=== PATIENT | male | born 1935 | race Caucasian/White ===

== ENCOUNTER 2017-05-09 14:05 | Observation (INO) | payer MEDICARE ==
[~2017-05-09] VITALS: Ht 182.9 cm; Wt 100.0 kg
[~2017-05-09 14:05] MED LIST: APIX5TAB PO; CYAN1TAB22 PO; FINA5TAB2 PO; FURO40TA PO; GABA100C4 PO; NORV2.5T PO; POTA20TA5 PO; PRAV10TA PO; TERA5CAP3 PO; VALS1TAB70 PO
[2017-05-09 14:07] VITALS: BP 163/88; PULSE 63; RESP 16; TEMP 97.8; O2SAT 98
--- NOTE | 2017-05-09 14:18 | PD ---
HPI Chief Complaint: Cardiac Complaint Time Seen by Provider: 14:18 Travel History International Travel<30 days: No Contact w/Intl Traveler<30days: No Traveled to known affect area: No History of Present Illness HPI 82-year-old male presents to the emergency Department with episodes of feeling lightheaded, and dizzy even at rest. Patient states he's had these episodes several times over the past several days. Denies specific complaints of shortness of breath, chest pain, or abdominal pain. He has no nausea or vomiting. 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 Patient has history of atrial fibrillation. Patient states these episodes last 5-10 minutes and then seemed to go away by themselves. He denies shortness of breath, cough, has had with exertion. He denies orthopnea. Patient is allergic to flu shots. PFSH Past Medical History Hx Anticoagulant Therapy: Yes Arthritis: Yes Atrial Fibrillation: Yes Blood Disorders: No Cancer: Yes (SKIN CANCER REMOVED) Cardiovascular Problems: Yes Chemotherapy: No Congestive Heart Failure: Yes Diminished Hearing: Yes Endocrine: No Gout: Yes Genitourinary: No Hypertension: Yes Immune Disorder: No Musculoskeletal: Yes Neurologic: No Psychiatric: No Reproductive: No Respiratory: No Radiation Therapy: No Past Surgical History Abdominal Surgery: Yes (APPENDECTOMY, LAP CHOLEY) AICD: No Appendectomy: Yes Arteriovenous Shunt: No Cholecystectomy: Yes Genitourinary Surgery: Yes (RUPTURED BLADDER REPAIR) Insulin Pump: No Joint Replacement: Yes (LEFT KNEE) Pacemaker: No Other Surgery: Yes Social History Alcohol Use: Yes (DAILY 2 DRINKS) Tobacco Use: No Substance Use: No Allergies-Medications (Allergen,Severity, Reaction): Uncoded Allergies: flu shot (Allergy, Intermediate, muscle weakness , 03/02/17) Reported Meds & Prescriptions Reported Meds & Active Scripts Active Reported Vitamin B-12 (Cyanocobalamin) 5,000 Mcg Tab 5,000 Mcg PO DAILY Valsartan 320 Mg Tab 320 Mg PO DAILY Terazosin (Terazosin HCl) 5 Mg Cap 5 Mg PO HS Pravastatin 10 Mg Tab 10 Mg PO DAILY Potassium Chloride Microencaps 20 Meq Tab 20 Meq PO DAILY Eliquis (Apixaban) 5 Mg Tab 5 Mg PO BID Gabapentin 100 Mg Cap 200 Mg PO TID Furosemide 40 Mg Tab 40 Mg PO BID Finasteride 5 Mg Tab 5 Mg PO DAILY Do not crush. Review of Systems Except as stated in HPI: all other systems reviewed are Neg General / Constitutional: No: Fever Eyes: No: Visual changes HENT: Positive: Lightheadedness, No: Headaches Cardiovascular: Positive: Irregular Rhythm, No: Chest Pain or Discomfort, Palpitations, Tachycardia, Diaphoresis, Syncope, Dyspnea on exertion, Varicosities, Edema, Cyanosis, Varicosities, Phlebitis Respiratory: No: Shortness of Breath Gastrointestinal: No: Abdominal Pain Genitourinary: No: Dysuria Musculoskeletal: No: Pain Skin: No Rash Neurologic: No: Weakness Psychiatric: No: Depression Endocrine: No: Polydipsia Hematologic/Lymphatic: No: Easy Bruising Physical Exam Narrative GENERAL: Patient appears in no acute distress. SKIN: Warm and dry. Normal color. Normal turgor. HEAD: Atraumatic. Normocephalic. EYES: Pupils equal and round. No scleral icterus. No injection or drainage. ENT: No nasal bleeding or discharge. Mucous membranes pink and moist. Pharynx is clear. Airway is patent. NECK: Trachea midline. No JVD. Supple nontender. CARDIOVASCULAR: Bradycardic rate and rhythm. No murmurs gallops or rubs. RESPIRATORY: No accessory muscle use. Clear to auscultation. Breath sounds equal bilaterally. GASTROINTESTINAL: Abdomen soft, non-tender, nondistended. Hepatic and splenic margins not palpable. MUSCULOSKELETAL: Extremities without clubbing, cyanosis, or edema. No obvious deformities. NEUROLOGICAL: Awake and alert. No obvious cranial nerve deficits. Motor grossly within normal limits. Five out of 5 muscle strength in the arms and legs. Normal speech. PSYCHIATRIC: Appropriate mood and affect; insight and judgment normal. Data Data Last Documented VS Vital Signs Date Time Temp Pulse Resp B/P (MAP) Pulse Ox O2 Delivery O2 Flow Rate FiO2 05/09/17 15:34 54 18 143/81 (101) 96 Room Air 05/09/17 14:07 97.8 Orders Orders Electrocardiogram (05/09/17 14:28) Complete Blood Count With Diff (05/09/17 14:28) Comprehensive Metabolic Panel (05/09/17 14:28) Magnesium (Mg) (05/09/17 14:28) B-Type Natriuretic Peptide (05/09/17 14:28) Ckmb (Isoenzyme) Profile (05/09/17 14:28) Troponin I (05/09/17 14:28) Act Partial Throm Time (Ptt) (05/09/17 14:28) Prothrombin Time / Inr (Pt) (05/09/17 14:28) Urinalysis - C+S If Indicated (05/09/17 14:28) Chest, Single Ap (05/09/17 14:28) Ecg Monitoring (05/09/17 14:28) Iv Access Insert/Monitor (05/09/17 14:28) Oximetry (05/09/17 14:28) Sodium Chloride 0.9% Flush (Ns Flush) (05/09/17 14:30) Orthostatic Vital Signs (05/09/17 14:28) Sodium Chlorid 0.9% 500 Ml Inj (Ns 500 M (05/09/17 14:30) Labs Laboratory Tests Test 05/09/17 14:42 05/09/17 15:00 White Blood Count 8.1 TH/MM3 Red Blood Count 4.29 MIL/MM3 Hemoglobin 13.4 GM/DL Hematocrit 38.3 % Mean Corpuscular Volume 89.2 FL Mean Corpuscular Hemoglobin 31.3 PG Mean Corpuscular Hemoglobin Concent 35.1 % Red Cell Distribution Width 14.4 % Platelet Count 217 TH/MM3 Mean Platelet Volume 8.9 FL Neutrophils (%) (Auto) 68.2 % Lymphocytes (%) (Auto) 21.9 % Monocytes (%) (Auto) 8.0 % Eosinophils (%) (Auto) 0.8 % Basophils (%) (Auto) 1.1 % Neutrophils # (Auto) 5.5 TH/MM3 Lymphocytes # (Auto) 1.8 TH/MM3 Monocytes # (Auto) 0.6 TH/MM3 Eosinophils # (Auto) 0.1 TH/MM3 Basophils # (Auto) 0.1 TH/MM3 CBC Comment DIFF FINAL Differential Comment Prothrombin Time 10.8 SEC Prothromb Time International Ratio 1.0 RATIO Activated Partial Thromboplast Time 30.3 SEC Blood Urea Nitrogen 10 MG/DL Creatinine 0.71 MG/DL Random Glucose 82 MG/DL Total Protein 7.0 GM/DL Albumin 3.2 GM/DL Calcium Level 8.4 MG/DL Magnesium Level 2.0 MG/DL Alkaline Phosphatase 80 U/L Aspartate Amino Transf (AST/SGOT) 20 U/L Alanine Aminotransferase (ALT/SGPT) 15 U/L Total Bilirubin 0.8 MG/DL Sodium Level 139 MEQ/L Potassium Level 3.7 MEQ/L Chloride Level 104 MEQ/L Carbon Dioxide Level 28.0 MEQ/L Anion Gap 7 MEQ/L Estimat Glomerular Filtration Rate 106 ML/MIN Total Creatine Kinase 66 U/L Troponin I LESS THAN 0.02 NG/ML B-Type Natriuretic Peptide 137 PG/ML Urine Color YELLOW Urine Turbidity HAZY Urine pH 6.5 Urine Specific [place] 1.019 Urine Protein NEG mg/dL Urine Glucose (UA) NEG mg/dL Urine Ketones NEG mg/dL Urine Occult Blood NEG Urine Nitrite NEG Urine Bilirubin NEG Urine Urobilinogen LESS THAN 2.0 MG/DL Urine Leukocyte Esterase NEG Urine RBC 1 /hpf Urine WBC 2 /hpf Urine Squamous Epithelial Cells <1 /hpf Urine Mucus FEW /lpf Microscopic Urinalysis Comment CULT NOT INDICATED MDM Medical Decision Making Medical Screen Exam Complete: Yes Emergency Medical Condition: Yes Medical Record Reviewed: Yes Differential Diagnosis Electrolyte imbalance. Bradycardia. Cardiac syndrome. CHF. Narrative Course Patient is medically stable at time of exam. EKG is performed showing atrial fibrillation with slow ventricular response with a rate of 59 beats per minute. This is reviewed with Dr. Dumont. Labs ordered including CBC, CMP, cardiac panel, proBNP, and urinalysis. Orthostatics are ordered. Patient is given 500 mg normal saline bolus. CBC is unremarkable. Coagulation studies show PT of 10.8, INR is 1.0, APTT is 30.3. Urinalysis is unremarkable. CMP shows no significant findings with a BNP of 137, first troponin is less than 0.02. Orthostatics were unremarkable. Patient discussed with Dr. Dumont. Diagnosis Primary Impression: Bradycardia Additional Impressions: Near syncope A-fib Qualified Codes: I48.2 - Chronic atrial fibrillation Admitting Information Admitting Physician Requests: Observation Condition: Stable Shaun Bond May 09, 2017 14:18
[2017-05-09] MEDS ORDERED: SODIUM CHLORID 0.9% 500 ML INJ 500 ML IV ONE (14:30)
[2017-05-09] MEDS ORDERED: SODIUM CHLORIDE 0.9% FLUSH 10 ML FLUSH IVF PRN (14:30)
[2017-05-09 15:05] VITALS: O2SAT 98
[2017-05-09 15:17] LABS: AUTOMATED NEUTROPHIL # 5.5 TH/MM3 (1.8-7.7); BASOPHIL # 0.1 TH/MM3 (0-0.2); BASOPHIL % 1.1 % (0.0-2.0); EOSINOPHIL # 0.1 TH/MM3 (0-0.4); EOSINOPHIL % 0.8 % (0.0-4.0); HEMATOCRIT 38.3 % (39.0-51.0); HEMO FLAGS DIFF FINAL; LYMPH % 21.9 % (9.0-44.0); LYMPHOCYTE # 1.8 TH/MM3 (1.0-4.8); MEAN CELL VOLUME 89.2 FL (80.0-100.0); MEAN CORPUSCULAR HEMOGLOBIN 31.3 PG (27.0-34.0); MEAN CORPUSCULAR HGB CONC 35.1 % (32.0-36.0); NEUT % 68.2 % (16.0-70.0); PLATELET COUNT 217 TH/MM3 (150-450); RED BLOOD COUNT 4.29 MIL/MM3 (4.50-5.90); RED CELL DISTRIBUTION WIDTH 14.4 % (11.6-17.2); WHITE BLOOD COUNT 8.1 TH/MM3 (4.0-11.0)
[2017-05-09 15:21] LABS: APTT (PATIENT) 30.3 SEC (24.3-30.1); PROTHROMBIN TIME - PATIENT 10.8 SEC (9.8-11.6)
[2017-05-09 15:25] LABS: BLOOD, URINE NEG (NEG); COMMENT (UR) CULT NOT INDICATED; CULTURE IF INDICATED CULT NOT INDICATED; GLUCOSE,URINE NEG (NEG); KETONE, URINE NEG (NEG); MUCUS URINE FEW /lpf (OCC); NITRITE,URINE NEG (NEG); PH, URINE 6.5 (5.0-8.5); SQUAMOUS EPITHELIAL CELL URINE <1 /hpf (0-5); URINE COLOR YELLOW (YELLW/STRAW)
[2017-05-09 15:30] LABS: AST (GOT) 20 U/L (15-37); BLOOD UREA NITROGEN 10 MG/DL (7-18); GLOMERULAR FILTRATION RATE 106 ML/MIN (>89)
[2017-05-09 15:32] LABS: ALT (GPT) 15 U/L (12-78)
[2017-05-09 15:34] VITALS: BP_SYST 143; BP_SYST 148; BP_DIAS 77; BP_DIAS 81; PULSE 54; RESP 18; O2SAT 96
--- NOTE | 2017-05-09 15:50 | RADRPT ---
EXAM DATE/TIME: 05/09/2017 15:23 [place] COMPARISON: No previous studies available for comparison. INDICATIONS : Palpitations. MEDICAL HISTORY : Congestive heart failure. A fib SURGICAL HISTORY : None. ENCOUNTER: Initial ACUITY: 1 day PAIN SCORE: 3/10 LOCATION: Bilateral chest FINDINGS: A single view of the chest demonstrates the lungs to be symmetrically aerated without evidence of mas s, infiltrate or effusion. The heart is upper limits normal for AP portable technique. Mild tortuos ity descending thoracic aorta.. Osseous structures are intact. CONCLUSION: The lungs are clear. Leon Bah MD on May 09, 2017 at 15:48 Board Certified Radiologist. This report was verified electronically.
[2017-05-09 15:59] LABS: ALKALINE PHOSPHATASE 80 U/L (45-117); TOTAL BILIRUBIN ADULT 0.8 MG/DL (0.2-1.0)
[2017-05-09 16:00] LABS: CREATINE KINASE 66 U/L (39-308)
[2017-05-09 16:05] LABS: ANION GAP 7 MEQ/L (5-15); CHLORIDE 104 MEQ/L (98-107); POTASSIUM 3.7 MEQ/L (3.5-5.1); SODIUM (NA) 139 MEQ/L (136-145)
[2017-05-09] MEDS ORDERED: LACTULOSE SYRUP 20 GM/30 ML CUP PO PRN (16:45)
[2017-05-09] MEDS ORDERED: SODIUM CHLORIDE 0.9% FLUSH 10 ML FLUSH IV FLUSH PRN (16:45)
[2017-05-09] MEDS ORDERED: ACETAMINOPHEN 325 MG TAB PO PRN (16:45)
[2017-05-09] MEDS ORDERED: NALOXONE HCL 0.4 MG/ML AMP IV PUSH PRN (16:45)
[2017-05-09] MEDS ORDERED: MAGNESIUM HYDROXIDE SUSP 30 ML CUP PO PRN (16:45)
[2017-05-09] MEDS ORDERED: BISACODYL 10 MG SUPP RECTAL PRN (16:45)
[2017-05-09] MEDS ORDERED: SENNOSIDES 8.6 MG TAB PO PRN (16:45)
[2017-05-09] MEDS ORDERED: ONDANSETRON HCL 4 MG/2 ML VIAL IVP PRN (16:45)
--- NOTE | 2017-05-09 17:24 | HHI.HP ---
[facility] Service [facility] Service Primary Care Physician Timothy South MD Admission Diagnosis Nearsyncope/Bradycardia/Labile Hypertension Diagnoses: International Travel<30 Days: No Contact w/Intl Traveler<30days: No History of Present Illness Patient is an 82 year old male with history significant for atrial fibrillation , CHF, and HTN who presents with lightheadedness and labile blood pressures. The symptoms are intermittent and have been occurring for at least two days and "maybe longer." They last at max 20 minutes and self-resolve. No obvious triggers. His BPs have been running 100s/50s to 180s/90s at home over the last week on and off amlodipine. 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 Ortega) stopped amlodipine 2.5mg on 05/06/2017 due to complaints of labile BPs and that patient has been taking Lasix 40mg tablets once daily rather than twice daily as prescribed. Echo last completed a couple of months ago per patient, and "everything was fine." Yesterday he had episode of "sweats" while sitting in a chair which went away after [address] Timothy South in the [facility]. He denies a risk of dehydration and has no recent illnesses or travel. Drinks lots of water during the daytime at baseline. Denies fevers, chills, dysuria, frequency, diarrhea, nausea, vomiting. No chest pain or shortness or breath. No increased LE edema from his baseline. No bleeding episodes or falls. Uses a cane for ambulation. (Gina Mahmood MD R2) Review of Systems Constitutional: DENIES: Fever, Chills, Change in appetite Eyes: DENIES: Blurred vision, Diplopia Ears, nose, mouth, throat: DENIES: Hearing loss, Vertigo, Ear Pain Respiratory: DENIES: Cough, Wheezing, Shortness of breath Cardiovascular: COMPLAINS OF: Lower Extremity Edema, DENIES: Chest pain, Palpitations, Syncope, Orthopnea, Claudication Gastrointestinal: DENIES: Abdominal pain, Black stools, Bloody stools, Constipation, Diarrhea, Nausea, Vomiting, Difficulty Swallowing Genitourinary: DENIES: Urinary frequency, Urinary incontinence, Dysuria Musculoskeletal: COMPLAINS OF: Joint pain (osteoarthritis), DENIES: Joint Swelling, Back pain, Neck pain Integumentary: DENIES: Pruritus, Rash Hematologic/lymphatic: DENIES: Bruising, Lymphadenopathy Neurologic: COMPLAINS OF: Poor Balance (uses cane), DENIES: Abnormal gait, Headache, Localized weakness, Seizures Psychiatric: DENIES: Anxiety, Confusion (Gina Mahmood MD R2) Past Family Social History Past Medical History PMH: Atrial fibrillation: Eliquis, Valsartan, Norvasc. CHF: valsartan, norvasc, Lasix. Last ECHO done January 2017, will try to obtain records. Hypercholesterolemia: on statin, low dose Neuropathy: gabapentin in feet Hypertension: norvasc, valsartan. Checks blood pressures at home. Uses cane to walk Osteoarthritis Other physicians: Dr. Ortega: cardiology Dr. Armendariz: [place] primary care Dr. Mg: neurologist for neuropathy Dr. 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 Family History: Mother: , heart problems, hypertension Father: from bone cancer Brother: hypertension, PTSD Sister age 3 with heart defect Healthcare maintenance: BP: 150/80 in clinic, checks at home, averages 130's/80's Smoking: in the past, quit 1984 Depression screening: no Fall prevention: no history of falls, uses cane to walk, has neuropathy Exercise: none Colonoscopy: last was 2005, had small polyps, no colon cancer in the family Past Surgical History above Reported Medications Reported Meds & Active Scripts Active Reported Vitamin B-12 (Cyanocobalamin) 5,000 Mcg Tab 5,000 Mcg PO DAILY Valsartan 320 Mg Tab 320 Mg PO DAILY Terazosin (Terazosin HCl) 5 Mg Cap 5 Mg PO HS Pravastatin 10 Mg Tab 10 Mg PO DAILY Potassium Chloride Microencaps 20 Meq Tab 20 Meq PO DAILY Eliquis (Apixaban) 5 Mg Tab 5 Mg PO BID Gabapentin 100 Mg Cap 200 Mg PO TID Furosemide 40 Mg Tab 40 Mg PO BID Finasteride 5 Mg Tab 5 Mg PO DAILY Do not crush. (Gina Mahmood MD R2) Allergies: Uncoded Allergies: flu shot (Allergy, Intermediate, muscle weakness , 03/02/17) Active Ordered Medications Inpatient Medications Acetaminophen (Tylenol) 650 mg Q4H PRN PO TEMP > 100.4; Start 05/09/17 at 16: 45 Bisacodyl (Dulcolax Supp) 10 mg DAILY PRN RECTAL SEVERE CONSITIPATION; Start 05/09/17 at 16:45 Lactulose (Lactulose Liq) 30 ml DAILY PRN PO SEVERE CONSITIPATION; Start 05/09 at 16:45 Magnesium Hydroxide (Milk Of Magnesia Liq) 30 ml Q12H PRN PO Mild constipation ; Start 05/09/17 at 16:45 Naloxone HCl (Narcan Inj) 0.4 mg UNSCH PRN IV PUSH SEE LABEL COMMENTS; Start 05/09/17 at 16:45 Ondansetron HCl (Zofran Inj) 4 mg Q6H PRN IVP NAUSEA OR VOMITING; Start at 16:45 Senna/Docusate Sodium (Alyssa-Colace) 1 tab BID PO ; Start 05/09/17 at 21:00 Sennosides (Senokot) 17.2 mg Q12H PRN PO Moderate constipation; Start at 16:45 Sodium Chloride (NS Flush) 2 ml BID IV FLUSH ; Start 05/09/17 at 21:00 Family History above Social History above Today reports: Nonsmoker (remote hx) Drinks wine one glass daily (Gina Mahmood MD R2) Physical Exam Vital Signs Vital Signs Date Time Temp Pulse Resp B/P (MAP) Pulse Ox O2 Delivery O2 Flow Rate FiO2 05/09/17 15:34 54 18 143/81 (101) 96 Room Air 05/09/17 15:34 58 18 143/81 (101) 54 18 148/77 (100) 05/09/17 15:05 98 Room Air 05/09/17 14:07 97.8 63 16 163/88 (113) 98 Physical Exam GENERAL: well appearing elderly white male accompanied by . In no apparent distress sitting up in bed. SKIN: Warm and dry. Venous stasis skin changes noted on bilateral LEs. Left knee with surgical scar. Abdomen with surgical scar at midline. HEAD: Atraumatic. Normocephalic. EYES: PERRLA, EOMI. No conjunctival injection. No scleral icterus. ENT: No nasal bleeding or discharge. Mucous membranes pink and moist. NECK: Trachea midline. No JVD noted. CARDIOVASCULAR: Irregular rate, no murmurs. Pulses 1+ in UEs, difficult to palpate in LEs due to edema (3+ to knees bilaterally). RESPIRATORY: No accessory muscle use. Clear to auscultation without wheezes or rhonchi. Breath sounds equal bilaterally. GASTROINTESTINAL: Abdomen soft, non-tender, obese. Bowel sounds normal. Hepatic and splenic margins not palpable. MUSCULOSKELETAL: Extremities without clubbing, cyanosis, or edema. No obvious deformities. NEUROLOGICAL: Awake and alert. radial drill operator for plastic II-XII intact. Motor grossly within normal limits. Five out of 5 muscle strength in the arms and legs. Normal speech. No issues with short ambulation. PSYCHIATRIC: Appropriate mood and affect; insight and judgment normal. Laboratory Laboratory Tests Test 05/09/17 14:42 05/09/17 15:00 White Blood Count 8.1 Red Blood Count 4.29 Hemoglobin 13.4 Hematocrit 38.3 Mean Corpuscular Volume 89.2 Mean Corpuscular Hemoglobin 31.3 Mean Corpuscular Hemoglobin Concent 35.1 Red Cell Distribution Width 14.4 Platelet Count 217 Mean Platelet Volume 8.9 Neutrophils (%) (Auto) 68.2 Lymphocytes (%) (Auto) 21.9 Monocytes (%) (Auto) 8.0 Eosinophils (%) (Auto) 0.8 Basophils (%) (Auto) 1.1 Neutrophils # (Auto) 5.5 Lymphocytes # (Auto) 1.8 Monocytes # (Auto) 0.6 Eosinophils # (Auto) 0.1 Basophils # (Auto) 0.1 CBC Comment DIFF FINAL Differential Comment Prothrombin Time 10.8 Prothromb Time International Ratio 1.0 Activated Partial Thromboplast Time 30.3 Blood Urea Nitrogen 10 Creatinine 0.71 Random Glucose 82 Total Protein 7.0 Albumin 3.2 Calcium Level 8.4 Magnesium Level 2.0 Alkaline Phosphatase 80 Aspartate Amino Transf (AST/SGOT) 20 Alanine Aminotransferase (ALT/SGPT) 15 Total Bilirubin 0.8 Sodium Level 139 Potassium Level 3.7 Chloride Level 104 Carbon Dioxide Level 28.0 Anion Gap 7 Estimat Glomerular Filtration Rate 106 Total Creatine Kinase 66 Troponin I LESS THAN 0.02 B-Type Natriuretic Peptide 137 Urine Color YELLOW Urine Turbidity HAZY Urine pH 6.5 Urine Specific [place] 1.019 Urine Protein NEG Urine Glucose (UA) NEG Urine Ketones NEG Urine Occult Blood NEG Urine Nitrite NEG Urine Bilirubin NEG Urine Urobilinogen LESS THAN 2.0 Urine Leukocyte Esterase NEG Urine RBC 1 Urine WBC 2 Urine Squamous Epithelial Cells <1 Urine Mucus FEW Microscopic Urinalysis Comment CULT NOT INDICATED (Gina Mahmood MD R2) Result Diagram: 05/09/17 1442 05/09/17 1442 Imaging Last Impressions Chest X-Ray 05/09/17 1428 Signed Impressions: Service Date/Time: Tuesday, May 09, 2017 15:23 - CONCLUSION: The lungs are clear. Leon Bah MD (Gina Mahmood MD R2) Caprini VTE Risk Assessment Caprini VTE Risk Assessment: Mod/High Risk (score >= 2) Caprini Risk Assessment Model Point Value = 1 Point Value = 2 Point Value = 3 Point Value = 5 Age 41-60 Minor surgery BMI > 25 kg/m2 Swollen legs Varicose veins or History of unexplained or recurrent spontaneous Oral contraceptives or hormone replacement Sepsis (< 1 month) Serious lung disease, including pneumonia (< 1 month) Abnormal pulmonary function Acute myocardial infarction Congestive heart failure (< 1 month) History of inflammatory bowel disease Medical patient at bed rest Age 61-74 Arthroscopic surgery Major open surgery (> 45 min) Laparoscopic surgery (> 45 min) Malignancy Confined to bed (> 72 hours) Immobilizing plaster cast Central venous access Age >= 75 History of VTE Family history of VTE Factor V Leiden Prothrombin [id number] Lupus anticoagulant Anticardiolipin antibodies Elevated serum homocysteine Heparin-induced thrombocytopenia Other congenital or acquired thrombophilia Stroke (< 1 month) Elective arthroplasty Hip, pelvis, or leg fracture Acute spinal cord injury (< 1 month) Prophylaxis Regimen Total Risk Factor Score Risk Level Prophylaxis Regimen 0-1 Low Early ambulation 2 Moderate Order ONE of the following: *Sequential Compression Device (SCD) *Heparin 5000 units SQ BID 3-4 Higher Order ONE of the following medications: *Heparin 5000 units SQ TID *Enoxaparin/Lovenox 40 mg SQ daily (WT < 150 kg, CrCl > 30 mL/min) *Enoxaparin/Lovenox 30 mg SQ daily (WT < 150 kg, CrCl > 10-29 mL/min) *Enoxaparin/Lovenox 30 mg SQ BID (WT < 150 kg, CrCl > 30 mL/min) AND/OR *Sequential Compression Device (SCD) 5 or more Highest Order ONE of the following medications: *Heparin 5000 units SQ TID (Preferred with Epidurals) *Enoxaparin/Lovenox 40 mg SQ daily (WT < 150 kg, CrCl > 30 mL/min) *Enoxaparin/Lovenox 30 mg SQ daily (WT < 150 kg, CrCl > 10-29 mL/min) *Enoxaparin/Lovenox 30 mg SQ BID (WT < 150 kg, CrCl > 30 mL/min) AND *Sequential Compression Device (SCD) (Gina Mahmood MD R2) Assessment and Plan Assessment and Plan 82 year old male with atrial fibrillation, CHF, HL, and OA who presents with nonspecific symptoms including intermittent lightheadness and labile blood pressures. He'll be admitted for observation for further workup. Code Status Full Code Discussed Condition With Dr. Dumont (Gina Mahmood MD R2) Attending Attestation Attending: Dr. Vianney Prado --> Dr. Robin (on 05/10/2017) (Gina Mahmood MD R2) I was available for questions re: this pt, but did not interview or examine. Pt to be assessed, including review of this H&P, by Dr Robin who assumed FPTS- resident service 05-10-17 (Vianney Prado MD) Problem List: (1) Near syncope ICD Codes: R55 - Syncope and collapse Status: Acute Plan: Patient presents with reports of dizziness and apparent near syncope. He has not had any syncopal episodes. Differential includes ACS, orthostatic hypotension, PE, dehydration, infection, dysrhythmia, vertigo, medications, psychogenic sources. Given he is also noted to have labile heart rate ranging from the 50s to 90s on telemetry in the ED, suspect this is the source of his symptoms. ED workup included orthostatic vital signs which were normal. Initial lab work and UA were unremarkable aside from mildly elevated BNP. BSG was 82 but patient states he has not eaten since yesterday. CXR unremarkable. Initial EKG showing atrial fibrillation, but notable for heart rate of 59. Wells score is 0. * Admit to observation with telemetry and close vital sign monitoring * Consult cardiology for evaluation - if significant bradycardia persists, patient may be a candidate for pacemaker in the short or long-term * 2-D echo ordered * Continue to trend cardiac enzymes as ACS may present atypically in this age group. Initial EKG and enzymes not diagnostic. * Activity out of bed with assistance only, fall precautions * Physical therapy to evaluate * Bedside glucose checks if patient becomes symptomatic during evaluation, patient does not prefer this at this time (2) A-fib ICD Codes: I48.91 - Unspecified atrial fibrillation Status: Acute Plan: Continue home dose Eliquis 5 mg twice a day Monitor on telemetry (3) Bradycardia ICD Codes: R00.1 - Bradycardia, unspecified Status: Acute Plan: As above. Patient was counseled that if he is now having symptomatic bradycardia that he may need a pacemaker. (4) CHF (congestive heart failure) ICD Codes: I50.9 - Heart failure, unspecified Status: Chronic Plan: Unknown CHF class or whether he has reduced EF. He is on valsartan and does take Lasix 40 mg daily (prescribed twice a day dosing). He does appear to have clinical fluid overload today but CXR is normal. BNP is 137. * Continue Valsartan at home dose 320 mg daily * Continue Terazosin home dose 5 mg hs at this time, will hold if needed * Continue Lasix 40 mg PO twice a day * Consult cardiology - patient is known to Dr. Ortega (5) Peripheral neuropathy ICD Codes: G62.9 - Polyneuropathy, unspecified Status: Chronic Plan: Per EMR records, likely related to B12 deficiency Continue home dose gabapentin 200 mg PO TID Hold home B12 dose at this time (6) Hyperlipidemia ICD Codes: E78.5 - Hyperlipidemia, unspecified Status: Chronic Plan: Continue low-dose pravastatin 10 mg daily (7) Fluids/Electrolytes/Nutrition/Prophylaxis Status: Acute Plan: Fluids: tolerating PO Electrolytes: monitor and replete as needed Nutrition: heart-healthy diet DVT Prophylaxis: Early ambulation. Eliquis 5mg BID. bilateral SCDs GI Prophylaxis: Not indicated PRN anti-HTN: Clonidine 0.1mg PO PRN for SBP > 180/ and/or DBP > 100 (Gina Mahmood MD R2) Problem Qualifiers (1) A-fib: Qualified Codes: I48.2 - Chronic atrial fibrillation (2) CHF (congestive heart failure): Qualified Codes: I50.9 - Heart failure, unspecified Gina Mahmood MD R2 May 09, 2017 17:24 Vianney Prado MD May 11, 2017 08:53
[2017-05-09] MEDS ORDERED: cloNIDine HCL 0.1 MG TAB PO PRN (17:45)
[2017-05-09] MEDS: GABAPENTIN 100 MG CAP PO SCH (18:28)
[2017-05-09 18:54] VITALS: BP 134/78
[2017-05-09 19:03] VITALS: BP 146/75; PULSE 70; RESP 18; TEMP 98.1; O2SAT 99
[2017-05-09] MEDS: SODIUM CHLORIDE 0.9% FLUSH 10 ML FLUSH IV FLUSH SCH (21:00)
[2017-05-09] MEDS ORDERED: TERAZOSIN HCL 5 MG CAP PO SCH (21:00)
[2017-05-09] MEDS: APIXABAN 5 MG TABLET PO SCH ×2 (21:00→22:11)
[2017-05-09] MEDS: FUROSEMIDE 40 MG TAB PO SCH (22:11)
[2017-05-09] MEDS: DOCUSATE SODIUM 50 MG/SENNA 8.6 MG TAB PO SCH (22:11)
[2017-05-09 23:39] LABS: CREATINE KINASE 62 U/L (39-308)
--- NOTE | 2017-05-09 23:39 | EKG ---
Date Performed: 05/09/2017 Time Performed: 14:33:06 PTAGE: 82 years EKG: ATRIAL FIBRILLATION WITH SLOW VENTRICULAR RESPONSE SEPTAL MYOCARDIAL INFARCTION ABNORMAL EC G Compared to the PREVIOUS TRACING from 07/11/13, no significant change DOCTOR: Heladio Tejeda Interpretating Date/Time 05/09/2017 23:37:23
[2017-05-09 23:53] VITALS: BP 166/91; PULSE 84; RESP 18; TEMP 98.1; O2SAT 97
[2017-05-10 03:16] LABS: CREATINE KINASE 64 U/L (39-308)
[2017-05-10 05:01] VITALS: BP 158/78; PULSE 74; RESP 18; TEMP 98.1; O2SAT 97
[2017-05-10 05:59] LABS: AUTOMATED NEUTROPHIL # 5.8 TH/MM3 (1.8-7.7); BASOPHIL # 0.1 TH/MM3 (0-0.2); BASOPHIL % 0.8 % (0.0-2.0); EOSINOPHIL # 0.1 TH/MM3 (0-0.4); EOSINOPHIL % 0.8 % (0.0-4.0); HEMATOCRIT 35.7 % (39.0-51.0); HEMO FLAGS DIFF FINAL; LYMPH % 21.8 % (9.0-44.0); LYMPHOCYTE # 1.9 TH/MM3 (1.0-4.8); MEAN CELL VOLUME 88.4 FL (80.0-100.0); MEAN CORPUSCULAR HEMOGLOBIN 31.2 PG (27.0-34.0); MEAN CORPUSCULAR HGB CONC 35.3 % (32.0-36.0); MONO % 8.8 % (0.0-8.0); NEUT % 67.8 % (16.0-70.0); PLATELET COUNT 194 TH/MM3 (150-450); RED BLOOD COUNT 4.04 MIL/MM3 (4.50-5.90); RED CELL DISTRIBUTION WIDTH 14.3 % (11.6-17.2); WHITE BLOOD COUNT 8.5 TH/MM3 (4.0-11.0)
[2017-05-10 06:23] LABS: ANION GAP 9 MEQ/L (5-15); AST (GOT) 13 U/L (15-37); BICARBONATE 26.1 MEQ/L (21.0-32.0); BLOOD UREA NITROGEN 8 MG/DL (7-18); CHLORIDE 102 MEQ/L (98-107); GLOMERULAR FILTRATION RATE 122 ML/MIN (>89); POTASSIUM 3.1 MEQ/L (3.5-5.1); SODIUM (NA) 137 MEQ/L (136-145)
[2017-05-10 06:25] LABS: ALT (GPT) 13 U/L (12-78)
[2017-05-10 06:27] LABS: ALKALINE PHOSPHATASE 72 U/L (45-117); TOTAL BILIRUBIN ADULT 0.8 MG/DL (0.2-1.0)
[2017-05-10 08:05] VITALS: PULSE 86
[2017-05-10 08:14] VITALS: BP 152/89; PULSE 73; RESP 20; TEMP 98.2; O2SAT 96
[2017-05-10] MEDS ORDERED: VALSARTAN 160 MG TAB PO SCH (09:00)
[2017-05-10] MEDS: DOCUSATE SODIUM 50 MG/SENNA 8.6 MG TAB PO SCH (09:00)
[2017-05-10] MEDS: GABAPENTIN 100 MG CAP PO SCH ×2 (09:00→13:00)
[2017-05-10] MEDS ORDERED: POTASSIUM CHLORIDE 20 MEQ CONTROLLED RELEASE TAB PO SCH (09:00)
[2017-05-10] MEDS ORDERED: PRAVASTATIN SOD 10 MG TAB PO SCH (09:00)
[2017-05-10] MEDS: FUROSEMIDE 40 MG TAB PO SCH ×2 (09:42→15:17)
[2017-05-10] MEDS: APIXABAN 5 MG TABLET PO SCH (09:42)
[2017-05-10] MEDS: SODIUM CHLORIDE 0.9% FLUSH 10 ML FLUSH IV FLUSH SCH (09:46)
[2017-05-10 12:21] VITALS: BP 113/70; PULSE 68; RESP 18; TEMP 98.2; O2SAT 96
--- NOTE | 2017-05-10 13:36 | HHI.FPPN ---
Subjective Remarks Mr. Manriquez was afebrile with intermittent HTN overnight (SBP intermittently in 150's-160's); HR generally in 60's-80's. Telemetry reviewed: patient with intermittent bradycardia, also with occasional elevated HR with wider QRS suggestive of several ventricular originated beats. Patient reports that he generally feels unwell; he denies acute onset of symptoms but that he has periods of waxing/waning malaise. Patient also reports concern regarding blood pressure lability. No chest pain or shortness of breath reported. (Vinnie Carrizales MD, R3) Objective Vitals Vital Signs Date Time Temp Pulse Resp B/P (MAP) Pulse Ox O2 Delivery O2 Flow Rate FiO2 05/10/17 12:21 98.2 68 18 113/70 (84) 96 05/10/17 08:14 98.2 73 20 152/89 (110) 96 05/10/17 08:05 86 05/10/17 05:01 98.1 74 18 158/78 (104) 97 05/09/17 23:53 98.1 84 18 166/91 (116) 97 05/09/17 19:03 98.1 70 18 146/75 (98) 99 05/09/17 18:54 64 18 134/78 (96) 98 05/09/17 15:34 54 18 143/81 (101) 96 Room Air 05/09/17 15:34 58 18 143/81 (101) 54 18 148/77 (100) 05/09/17 15:05 98 Room Air 05/09/17 14:07 97.8 63 16 163/88 (113) 98 I/O 05/09/17 05/09/17 05/09/17 05/10/17 05/10/17 05/10/17 07:00 15:00 23:00 07:00 15:00 23:00 Intake Total 700 ml 200 ml Balance 700 ml 200 ml Intake Oral 200 ml 200 ml IV Total 500 ml (Vinnie Carrizales MD, R3) Result Diagram: 05/10/17 0537 05/10/17 0537 Imaging Last Impressions Chest X-Ray 05/09/17 1428 Signed Impressions: Service Date/Time: Tuesday, May 09, 2017 15:23 - CONCLUSION: The lungs are clear. Leon Bah MD Objective Remarks GENERAL: NAD; sitting at bedside SKIN: Warm and dry. No visible rashes EYES: EOM grossly intact CARDIOVASCULAR: Irregular rate (probably in 50's), no murmurs. Grossly normal perfusion. LE edema present bilaterally RESPIRATORY: No accessory muscle use. Clear to auscultation without wheezes. Breath sounds equal bilaterally. GASTROINTESTINAL: Abdomen soft, non-tender, obese. Bowel sounds normal. Hepatic and splenic margins not palpable. MUSCULOSKELETAL: Extremities without edema. No obvious deformities. NEUROLOGICAL: Awake and alert. CN's grossly intact. Grossly normal motor and sensory function. Normal speech. PSYCHIATRIC: Appropriate mood and affect; insight and judgment normal. (Vinnie Carrizales MD, R3) A/P Assessment and Plan 82 year old male with atrial fibrillation, CHF, HL, and OA who presents with nonspecific symptoms including intermittent lightheadedness and labile blood pressures. Patient admitted for observation: (Vinnie Carrizales MD, R3) Attending Attestation Patient seen and examined. Case reviewed and discussed with the resident team. Agree with plan of care as discussed with me and documented in the resident note. he was up walking to the bathroom and reported that when he took his BPs at home , he was always standing up! Discussed that they will always be higher when standing and the standard of care is to be seated. 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 (Melina Robin MD) Problem List: (1) Near syncope ICD Codes: R55 - Syncope and collapse Status: Acute Plan: Impression: Patient presents with reports of dizziness and apparent near syncope. He has not had any syncopal episodes. Differential includes ACS, orthostatic hypotension, PE, dehydration, infection, dysrhythmia, vertigo, medications, psychogenic sources. Given he is also noted to have labile heart rate ranging from the 50s to 90s on telemetry in the ED, suspect this is the source of his symptoms. ED workup included orthostatic vital signs which were normal. Initial lab work and UA were unremarkable aside from mildly elevated BNP. BSG was 82 but patient states he has not eaten since yesterday. CXR unremarkable. Initial EKG showing atrial fibrillation, but notable for heart rate of 59. Wells score is 0. -Continue Telemetry -Some concern for bradycardia and irregular HR with some ventricular beats -Cardiology consulted (patient of Dr. Ortega) -2D echo pending -ACS ruled out -Troponin, CKMB x3 wnl -EKG without obvious ST changes; atrial fibrillation -Physical therapy consulted -No PT recommended (2) A-fib ICD Codes: I48.91 - Unspecified atrial fibrillation Status: Acute Plan: Impression: Normal rate with some bradycardia on telemetry -Continue home dose Eliquis 5 mg twice a day -Monitor on telemetry (3) Bradycardia ICD Codes: R00.1 - Bradycardia, unspecified Status: Acute Plan: As above. Patient was counseled that if he is now having symptomatic bradycardia that he may need a pacemaker. (4) CHF (congestive heart failure) ICD Codes: I50.9 - Heart failure, unspecified Status: Chronic Plan: Impression: Unknown CHF class or whether he has reduced EF. He is on valsartan and does take Lasix 40 mg daily (prescribed twice a day dosing). CXR is normal. BNP is 137. * Continue Valsartan at home dose 320 mg daily * Continue Lasix 40 mg PO twice a day * Consult cardiology - patient is known to Dr. Ortega (5) Peripheral neuropathy ICD Codes: G62.9 - Polyneuropathy, unspecified Status: Chronic Plan: Per EMR records, likely related to B12 deficiency Continue home dose gabapentin 200 mg PO TID Hold home B12 dose at this time (6) Hyperlipidemia ICD Codes: E78.5 - Hyperlipidemia, unspecified Status: Chronic Plan: Continue low-dose pravastatin 10 mg daily (7) Fluids/Electrolytes/Nutrition/Prophylaxis Status: Acute Plan: Fluids: tolerating PO Electrolytes: monitor and replete as needed Nutrition: heart-healthy diet DVT Prophylaxis: Early ambulation. Eliquis 5mg BID. bilateral SCDs GI Prophylaxis: Not indicated PRN anti-HTN: Clonidine 0.1mg PO PRN for SBP > 180/ and/or DBP > 100 (Vinnie Carrizales MD, R3) Problem Qualifiers (1) A-fib: Qualified Codes: I48.2 - Chronic atrial fibrillation (2) CHF (congestive heart failure): Qualified Codes: I50.9 - Heart failure, unspecified Vinnie Carrizales MD, R3 May 10, 2017 13:36 Melina Robin MD May 10, 2017 17:28
--- NOTE | 2017-05-10 16:39 | HHI.FPPN ---
Addendum to progress note ADDENDUM Reason for addendum: Additonal documentation Additional information Patient visited by Cardiology (note not yet in EMR); reports being told he may go home to follow-up with Cardiology. Patient reports being instructed to take 1 /2 tablet Valsartan in morning and 1/2 tablet in evenings. Patient reports desire to go home, follow-up with Dr. Ortega, and return to ED with any symptoms. Discussed with patient possibility of Holter monitor to further evaluate symptoms. Patient's (present at bedside) plans to call to make Cardiology follow-up appointment tomorrow morning. DW Vinnie Lin MD, R3 May 10, 2017 16:39
[2017-05-10] MEDS ORDERED: VALS1TAB70 PO (16:45)
--- NOTE | 2017-05-10 16:45 | HHI.DCPOC ---
Discharge Care Plan Diagnosis: (1) Bradycardia (2) A-fib Goals to Promote Your Health * To prevent worsening of your condition and complications * To maintain your health at the optimal level Directions to Meet Your Goals Take your medications as prescribed Follow your dietary instruction Follow activity as directed Keep your appointments as scheduled Take your immunizations and boosters as scheduled If your symptoms worsen call your PCP, if no PCP go to Urgent Care Center or Emergency Room Smoking is Dangerous to Your Health. Avoid second hand smoke Call the 24-hour hour crisis hotline for domestic abuse at Vinnie Carrizales MD, R3 May 10, 2017 16:45
--- NOTE | 2017-05-10 16:57 | MB ---
cc: MAI VASQUEZ DATE OF CONSULTATION: 05/10/2017. REASON FOR CONSULTATION: I was asked by Dr. Robin to evaluate the patient with labile hypertension with periods of hypotension and chronic atrial fibrillation. PATIENT'S SYSTEM SPECIALIST: Dr. Ortega. ATTENDING PHYSICIAN: Dr. Robin. HISTORY OF PRESENT ILLNESS: Sourav Manriquez is an 82-year-old gentleman with past medical history significant for chronic atrial fibrillation, congestive heart failure and hypertension. He reports having episodes of labile hypertension; at one moment, it is elevated and the next moment, it is below causing him to have episodes of lightheadedness and dizziness. He saw Dr. Ortega a week ago and his amlodipine was discontinued. He now presents with episodes of generalized weakness, lightheadedness. He reports no syncope. He denies recent episodes of chest pain with exertion or angina and congestive symptoms of orthopnea and paroxysmal nocturnal dyspnea. Emergency room evaluation significant for ECG shows atrial fibrillation, heart rate 68 beats per minute, left anterior hemiblock, Q-S complexes in V1 and V3, old anteroseptal infarction, diffuse nonspecific S-T-T abnormalities. His blood pressures in the emergency room ranged from 113/70 to 166/91. Heart rate 68 to 84 beats per minute. PERTINENT LABORATORY DATA: Troponin less than 0.02 x3. BNP is 137. Potassium is 3.7, sodium 139, creatinine is 0.71. MEDICATIONS PRIOR TO ADMISSION: 1. Vitamin B. 2. Valsartan 320 milligrams daily. 3. Terazosin 5 milligrams at bedtime. 4. Pravastatin 10 milligrams daily. 5. Potassium 20 milliequivalents daily. 6. Eliquis 5 milligrams twice a day. 7. Gabapentin 100 milligrams three times a day. 8. Lasix 40 milligrams twice a day. 9. Finasteride 5 milligrams daily. ALLERGIES: FLU SHOT. PAST MEDICAL HISTORY: As above. He has a history of: 1. Hypercholesterolemia. 2. Chronic atrial fibrillation. 3. Congestive heart failure. 4. Neuropathy. 5. Labile hypertension. PAST SURGICAL HISTORY: 1. Status post left knee replacement. 2. Appendectomy. 3. Left rotator cuff repair. 4. Cholecystectomy. SOCIAL HISTORY: He stopped smoking in 1984. He drinks a glass of wine daily. He denies illicit drug use. He lives with his . FAMILY HISTORY: Mother from hypertension and "heart problems". Father from bone cancer. Brother has history of post-traumatic stress disorder and hypertension. REVIEW OF SYSTEMS: As above. A twelve-point review of systems reviewed and noted. No recent fevers, chills, cough and sputum production. No recent gastrointestinal, genitourinary or neurologic symptoms. PHYSICAL EXAMINATION: VITAL SIGNS: Temperature 98.1, pulse 84, blood pressure was 166/91, 02 saturation 975. HEAD, EYES, EARS, NOSE, THROAT: He is anicteric. Pupils equal, round and reactive to light and accommodation. NECK: Flat JVDs. LUNGS: His lungs were clear to auscultation. HEART: Irregular rate and rhythm with a 2/6 systolic murmur left lower sternal border. ABDOMEN: Abdomen soft and nontender. EXTREMITIES: Extremities show no peripheral edema. LABORATORY DATA: As above. Sodium 139, potassium 3.7, BUN 10, creatinine 0.71, magnesium 2.0. IMPRESSION: 1. Chronic atrial fibrillation, ventricular rate controlled, he is not on heart rate modifying medications. 2. Labile hypertension with periods of hypotension. 3. History of congestive heart failure. 4. Hypercholesterolemia. PLAN: 1. Continue all outpatient medications as listed. 2. Okay to discharge home from the cardiac standpoint. 3. For periods of hypotension, he was instructed to drink liberal amounts of fluids and to elevate his legs until his blood pressure increases. 4. Will schedule outpatient event monitor to evaluate for symptomatic bradycardia and pauses. 5. He was instructed to return to the emergency room for pre-syncope or syncope. Thank you for allowing me to contribute to the patient's care. Thank you for this consultation. MD GILES Villasenor/SHAWN /3:43 PM /4:44 PM
--- NOTE | 2017-05-10 18:33 | EKG ---
Date Performed: 05/10/2017 Time Performed: 05:49:44 PTAGE: 82 years EKG: ATRIAL FIBRILLATION MARKED LEFT AXIS DEVIATION ANTEROSEPTAL MYOCARDIAL INFARCTION ABNORMAL ECG INTERPRETATION BASED ON A DEFAULT AGE OF 40 YEARS PREVIOUS TRACING : 05/10/2017 02.50 Compared to prior tracing no significant change DOCTOR: Heladio Tejeda Interpretating Date/Time 05/10/2017 18:32:02
--- NOTE | 2017-05-11 00:47 | EKG ---
Date Performed: 05/10/2017 Time Performed: 02:50:55 PTAGE: 82 years EKG: AFIB WITH CVR BASELINE ARTIFACT LOW QRS VOLTAGE IN EXTREMITY LEADS INCOMPLETE RIGHT BUNDLE BRANCH BLOCK ANTERIOR MYOCARDIAL INFARCTION PREVIOUS TRACING : 05/09/2017 22.03 Compared to prior tracing no significant change DOCTOR: Heladio Tejeda Interpretating Date/Time 05/11/2017 00:47:24
--- NOTE | 2017-05-11 00:55 | EKG ---
Date Performed: 05/09/2017 Time Performed: 22:03:08 PTAGE: 82 years EKG: ATRIAL FIBRILLATION WITH SLOW VENTRICULAR RESPONSE MARKED LEFT AXIS DEVIATION BASELINE LU FACT POSSIBLE RIGHT VENTRICULAR CONDUCTION DELAY ANTERIOR MYOCARDIAL INFARCTION ABNORMAL ECG PREVIOUS TRACING : 05/09/2017 14.33 Compared to prior tracing no significant change DOCTOR: Heladio Tejeda Interpretating Date/Time 05/11/2017 00:54:56
== END 2017-05-10 17:09 | disposition home or self-care (01) ==
LOC: NEPC 14:05 → NEDA 16:31 → NEPFCDU 18:49
PROVIDERS: ADMIT Family Medicine; ATTEND Family Medicine
DX: R55 Syncope and collapse (principal); I48.2 Chronic atrial fibrillation; Z79.01 Long term (current) use of anticoagulants; R00.1 Bradycardia, unspecified; I50.9 Heart failure, unspecified; I11.0 Hypertensive heart disease with heart failure; G62.9 Polyneuropathy, unspecified; E78.5 Hyperlipidemia, unspecified; Z79.899 Other long term (current) drug therapy; I95.9 Hypotension, unspecified; R53.1 Weakness; E78.00 Pure hypercholesterolemia, unspecified; Z87.891 Personal history of nicotine dependence; M19.90 Unspecified osteoarthritis, unspecified site; M10.9 Gout, unspecified
CPT/HCPCS: 71010; 80053; 81001; 82550; 83735; 83880; 84484; 85025; 85610; 85730; 93005; 96360; 96361; 97161; 99285; G0378; G8987; G8988; J7040